=== PATIENT | male | born 1970 | race Caucasian/White ===

== ENCOUNTER 2022-01-05 13:26 | Outpatient (CLI) | payer BC, SELFPAY ==
--- NOTE | ~2022-01-05 | XR_ITS ---
XR shoulder LT min 2V DATE: 01/05/2022 13:36 INDICATION: Left shoulder pain TECHNIQUE: 4 views COMPARISON: None FINDINGS: No fracture or dislocation, periosteal reaction or bone destruction or abnormal soft tissue calcification. IMPRESSION: Negative Reviewed, dictated and finalized at location A. [employer] IMPRESSION: Negative
== END 2022-01-05 13:27 | disposition home or self-care (01) ==
LOC: ANHBWCIMG 13:28
PROVIDERS: PCP Family Medicine; Visit Provider Orthopaedic Surgery
DX: M25.512 Pain in left shoulder (principal)
CPT/HCPCS: 73030